=== PATIENT | female | born 1960 | race Caucasian/White ===

== ENCOUNTER 2018-01-20 08:47 | Day surgery (SDC) | payer OTHER ==
[2018-01-20] MEDS ORDERED: LACTATED RINGER'S 1,000 ML IV (10:30)
[2018-01-20] MEDS ORDERED: BUPIVACAINE 0.5% (SDV) 30 ML INJ (10:59)
[2018-01-20] MEDS ORDERED: LIDOCAINE 1% (MPF) 30 ML INJ (10:59)
[2018-01-20] MEDS ORDERED: ONDANSETRON 4 MG INJ IV (11:00)
[2018-01-20] MEDS ORDERED: HYDROmorphONE 1 MG/5 ML IV SYRINGE IV ×3 (11:00)
[2018-01-20] MEDS ORDERED: DIPHENHYDRAMINE 50 MG INJ IV (11:00)
[2018-01-20] MEDS ORDERED: PROCHLORPERAZINE 10 MG INJ IV (11:00)
[2018-01-20] MEDS ORDERED: OXYCODONE/ACETAMINOPHEN (5/325) TAB PO (11:00)
[2018-01-20] MEDS ORDERED: FENTAnyl 50 MCG/ML VIAL IV ×3 (11:00)
[2018-01-20] MEDS ORDERED: hydrALAzine 20 MG INJ IV (11:00)
[2018-01-20] MEDS ORDERED: MEPERIDINE 25 MG INJ IV (11:00)
[2018-01-20] MEDS ORDERED: FENTAnyl 50 MCG/ML VIAL (11:21)
[2018-01-20] MEDS ORDERED: MIDAZOLAM 1 MG/ML 2 ML INJ (11:21)
[2018-01-20] MEDS ORDERED: PROPOFOL 20 ML (11:21)
[2018-01-20] MEDS ORDERED: LIDOCAINE 2% (SDV) 5 ML INJ (11:21)
[2018-01-20] MEDS: BUPIVACAINE 0.5% 30 ML VIAL INJ (11:30)
[2018-01-20] MEDS ORDERED: CEFAZOLIN 1 GM INJ (11:30)
[2018-01-20] MEDS ORDERED: FAMOTIDINE 20 MG INJ (11:31)
[2018-01-20] MEDS ORDERED: ONDANSETRON 4 MG INJ (11:31)
[2018-01-20] MEDS ORDERED: DEXAMETHASONE 4 MG/ML 1 ML INJ (11:31)
[2018-01-20] MEDS ORDERED: EPHEDrine SULFATE 50 MG/5 ML SYG (11:50)
[2018-01-20] MEDS: LABETALOL HCL 20MG INJ IV (12:42)
== END 2018-01-20 14:40 | disposition home or self-care (01) ==
LOC: SDS 08:47
DX: M20.11 Hallux valgus (acquired), right foot (principal); M21.611 Bunion of right foot; E78.5 Hyperlipidemia, unspecified; I10 Essential (primary) hypertension
CPT/HCPCS: 28299; 88304; 88311